=== PATIENT | female | born 1950 | race Caucasian/White ===

== ENCOUNTER 2019-12-07 07:05 | Inpatient (IN) | payer MEDICARE, BC ==
[~2019-12-07 07:05] MED LIST: Acetaminophen 325 MG Tab PO SCH; Bisacodyl 5 MG Tab PO PRN; Lactated Ringers 1,000 ML IV SCH; Lidocaine 1%/Sod Bicarbonate in NS 8.4% 1 ML Syringe IDERM PRN; Magnesium Hydroxide 400 MG/5 ML Susp 30 ML Cup PO PRN; Morphine 2 MG/ML SYRINGE IVPUSH PRN; Naloxone 0.4 MG/ML SDV IVPUSH PRN; Ondansetron 4 MG/2 ML SDV IVPUSH PRN; Pregabalin 25 MG Cap PO SCH; Sennosides 8.6 MG Tab PO PRN; Sodium Chloride 0.9% 10 ML Syringe FLUSH PRN; oxyCODONE ER 10 MG TAB.ER PO SCH
--- NOTE | 2019-12-07 07:12 | PCM.CONS ---
H&P History of Present Illness - General Date of Service: 12/07/19 Admit Problem/Dx: Admission Diagnosis/Problem Admission Diagnosis/Problem Osteoarthritis of hip Source of Information: Patient, Old Records, Provider, RN, RN Notes Reviewed History Limitations: Reports: No Limitations - History of Present Illness Initial Comments - Free Text/Narative: Nakia Osborn is a 69 yo female patient of Dr. Spear who is post-operative day 0 of left SIMÓN. Hospital medicine was consulted for post-operative medical care of the following listed medical conditions. At this time she is resting comfortably in bed. Pain is controlled. She denies any chest pain, shortness of breath, palpitations, nausea, or vomiting. She carries a history of: CABG in 2018, Stents placed in 2012, CAD HLD, HTN, [place], Asthma, GERD, Arthritis, Chronic back pain, Fibromyalgia, Osteoarthritis, Sciatica, RLS, Chronic headaches, Anxiety, Depression, Insomnia. She is a former smoker. She is a full code. Her primary care provider is Dr. Blue. Left Hip Pain Score (Numeric/FACES): 8 - Related Data Allergies/Adverse Reactions: Allergies Allergy/AdvReac Type Severity Reaction Status Date / Time cephalexin [From Keflex] Allergy Other Verified 12/07/19 08:24 ciprofloxacin [From Cipro] Allergy Rash Verified 12/07/19 08:24 latex Allergy Itching Verified 12/07/19 08:24 tapentadol [From Nucynta] AdvReac Hallucinati Verified 12/07/19 08:24 ons Home Medications: Home Meds Aspirin [[place] Aspirin] 81 mg PO DAILY 12/06/19 [History] Celecoxib 200 mg PO DAILY 12/06/19 [History] Cyclobenzaprine [Flexeril] 10 mg PO BEDTIME PRN 12/06/19 [History] DULoxetine [Cymbalta] 60 mg PO BEDTIME 12/06/19 [History] Diclofenac Sodium [Voltaren 1% Gel] 1 dose TOP TID PRN 12/06/19 [History] Fluticasone Propionate [Flonase] 1 dose NASBOTH DAILY PRN 12/06/19 [History] Gabapentin [Neurontin] 100 mg PO TID 12/06/19 [History] LORazepam [Ativan] 0.5 - 1 mg PO BEDTIME 12/06/19 [History] Multivitamin [Daily Multiple Vitamin] 1 tab PO DAILY 12/06/19 [History] Nitroglycerin [Nitrostat] 0.4 mg PO ASDIRECTED PRN 12/06/19 [History] Omeprazole Magnesium [Prilosec Otc] 40 mg PO DAILY 12/06/19 [History] Rosuvastatin [Crestor] 10 mg PO MOWEFR 12/06/19 [History] Ubidecarenone [Coq-10] 200 mg PO DAILY 12/06/19 [History] Zolpidem [Ambien] 5 mg PO BEDTIME 12/06/19 [History] busPIRone [Buspar] 10 mg PO DAILY 12/06/19 [History] valACYclovir HCl [Valtrex] 1,000 mg PO ASDIRECTED PRN 12/06/19 [History] Past Medical History HEENT History: Reports: Allergic Rhinitis, Impaired Vision Cardiovascular History: Reports: High Cholesterol, Hypertension, [place], Stents Respiratory History: Reports: Asthma, SOB, Other (See Below) Other Respiratory History: bronchospasm, wheezing, cough, pneumonia Gastrointestinal History: Reports: GERD, Other (See Below) Other Gastrointestinal History: loose stools Genitourinary History: Reports: None 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 Musculoskeletal History: Reports: Arthritis, Back Pain, Chronic, Fibromyalgia, Osteoarthritis, Other (See Below) Other Musculoskeletal History: left ankle swelling, sciatica, restless leg syndrome, left foot metatarsalgia Neurological History: Reports: Headaches, Chronic, Other (See Below) Other Neuro History: viral labyrinthitis Psychiatric History: Reports: Anxiety, Depression, Other (See Below) Other Psychiatric History: insomnia Endocrine/Metabolic History: Reports: None Hematologic History: Reports: None Immunologic History: Reports: None Oncologic (Cancer) History: Reports: None Dermatologic History: Reports: Other (See Below) Other Dermatologic History: cold sores, fat necrosis of skin - Past Surgical History Head Surgeries/Procedures: Reports: None HEENT Surgical History: Reports: Tonsillectomy Cardiovascular Surgical History: Reports: Coronary Artery Bypass Respiratory Surgical History: Reports: None GI Surgical History: Reports: Appendectomy, Colonoscopy Female Surgical History: Reports: Breast Biopsy, Tubal Ligation Endocrine Surgical History: Reports: None Neurological Surgical History: Reports: None Musculoskeletal Surgical History: Reports: Other (See Below) Other Musculoskeletal Surgeries/Procedures:: bilateral wrist surgeries, bilateral bunionectomies Oncologic Surgical History: Reports: None Social & Family History - Tobacco Use Smoking Status *Q: Former Smoker Used Tobacco, but Quit: Yes Month/Year Tobacco Last Used: 1996 - Caffeine Use Caffeine Use: Reports: Soda - Recreational Drug Use Recreational Drug Use: No H&P Review of Systems - Review of Systems: Review Of Systems: See Below General: Reports: No Symptoms. Denies: Fever, Chills HEENT: Reports: No Symptoms. Denies: Headaches, Sore Throat Pulmonary: Reports: No Symptoms. Denies: Shortness of Breath, Wheezing, Pleuritic Chest Pain, Cough, Sputum Cardiovascular: Reports: No Symptoms. Denies: Chest Pain, Palpitations, Dyspnea on Exertion Gastrointestinal: Reports: No Symptoms. Denies: Abdominal Pain, Constipation, Diarrhea, Nausea, Vomiting Genitourinary: Reports: No Symptoms. Denies: Pain Musculoskeletal: Reports: Leg Pain Skin: Reports: No Symptoms. Denies: Cyanosis Psychiatric: Reports: No Symptoms. Denies: Confusion Neurological: Reports: Difficulty Walking, Gait Disturbance Hematologic/Lymphatic: Reports: No Symptoms Immunologic: Reports: No Symptoms Exam - Exam Exam: See Below - Exam Quality Assessment: DVT Prophylaxis. No: Supplemental Oxygen, Urinary Catheter General: Alert, Oriented, Cooperative. No: Mild Distress HEENT: Conjunctiva Clear, EACs Clear, Hearing Intact, Mucosa Moist & [place], Nares Patent, Posterior Pharynx Clear, PERRLA Neck: Supple, Trachea Midline Lungs: Clear to Auscultation, Normal Respiratory Effort Cardiovascular: Regular Rate, Regular Rhythm GI/Abdominal Exam: Normal Bowel Sounds, Soft, Non-Tender, No Distention (Female) Exam: Deferred Rectal (Female) Exam: Deferred Extremities: Normal Capillary Refill, Leg Pain, Limited Range of Motion, Other ( Bandage in place on left leg. Bandage is dry and intact. Cooling pack in place. ) Peripheral Pulses: 2+: Radial (L), Radial (R), Dorsalis Pedis (L), Dorsalis Pedis (R) Skin: Warm, Dry, Intact Neurological: Cranial Nerves Intact (Grossly ) Neuro Extensive - Mental Status: Alert, Oriented x3, Normal Mood/Affect Consult PN Assessment/Plan POD#: 0 (1) S/P total hip arthroplasty SNOMED Code(s): 527127633815, 400210084675 Code(s): Z96.649 - PRESENCE OF UNSPECIFIED ARTIFICIAL HIP JOINT Priority: High Current Visit: Yes Qualifiers: Laterality: left Qualified Code(s): Z96.642 - Presence of left artificial hip joint (2) Osteoarthritis SNOMED Code(s): 883637706 Code(s): M19.90 - UNSPECIFIED OSTEOARTHRITIS, UNSPECIFIED SITE Priority: High Current Visit: Yes Qualifiers: Osteoarthritis location: hip Osteoarthritis type: primary Laterality: left Qualified Code(s): M16.12 - Unilateral primary osteoarthritis, left hip (3) HLD (hyperlipidemia) SNOMED Code(s): 47063647 Code(s): E78.5 - HYPERLIPIDEMIA, UNSPECIFIED Priority: Low Current Visit : No Qualifiers: Hyperlipidemia type: unspecified Qualified Code(s): E78.5 - Hyperlipidemia , unspecified (4) HTN (hypertension) SNOMED Code(s): 92903754 Code(s): I10 - ESSENTIAL (PRIMARY) HYPERTENSION Priority: Medium Current Visit: No Qualifiers: Hypertension type: unspecified Qualified Code(s): I10 - Essential (primary ) hypertension (5) History of [place] (myocardial infarction) SNOMED Code(s): 500100532 Code(s): I25.2 - OLD MYOCARDIAL INFARCTION Priority: Medium Current Visit : No (6) Hx of CABG SNOMED Code(s): 789501405, 251763917 Code(s): Z95.1 - PRESENCE OF AORTOCORONARY BYPASS GRAFT Priority: Medium Current Visit: No Comment: 4 vessel in 2018 (7) Asthma SNOMED Code(s): 741056479 Code(s): J45.909 - UNSPECIFIED ASTHMA, UNCOMPLICATED Priority: Medium Current Visit: No Qualifiers: Asthma severity: unspecified severity Asthma persistence: unspecified Asthma complication type: unspecified Qualified Code(s): J45.909 - Unspecified asthma, uncomplicated (8) GERD (gastroesophageal reflux disease) SNOMED Code(s): 654696995 Code(s): K21.9 - GASTRO-ESOPHAGEAL REFLUX DISEASE WITHOUT ESOPHAGITIS Priority: Low Current Visit: No Qualifiers: Esophagitis presence: esophagitis presence not specified Qualified Code(s) : K21.9 - Gastro-esophageal reflux disease without esophagitis (9) Chronic back pain SNOMED Code(s): 868836968 Code(s): M54.9 - DORSALGIA, UNSPECIFIED; G89.29 - OTHER CHRONIC PAIN Priority: Low Current Visit: No Qualifiers: Back pain location: back pain in unspecified location Back pain laterality : unspecified Qualified Code(s): M54.9 - Dorsalgia, unspecified; G89.29 - Other chronic pain (10) Fibromyalgia SNOMED Code(s): 155360037 Code(s): M79.7 - FIBROMYALGIA Priority: Low Current Visit: No (11) Sciatica SNOMED Code(s): 08188266 Code(s): M54.30 - SCIATICA, UNSPECIFIED SIDE Priority: Low Current Visit : No Qualifiers: Laterality: unspecified laterality Qualified Code(s): M54.30 - Sciatica, unspecified side (12) RLS (restless legs syndrome) SNOMED Code(s): 42633635 Code(s): G25.81 - RESTLESS LEGS SYNDROME Priority: Low Current Visit: No (13) Chronic headache SNOMED Code(s): 401953942 Code(s): R51 - HEADACHE Priority: Low Current Visit: No Qualifiers: Headache type: unspecified Intractability: not intractable Qualified Code (s): R51 - Headache (14) Anxiety SNOMED Code(s): 24862525 Code(s): F41.9 - ANXIETY DISORDER, UNSPECIFIED Priority: Low Current Visit: No (15) Depression SNOMED Code(s): 63968505 Code(s): F32.9 - MAJOR DEPRESSIVE DISORDER, SINGLE EPISODE, UNSPECIFIED Priority: Low Current Visit: No Qualifiers: Depression Type: other depression Qualified Code(s): F32.89 - Other specified depressive episodes (16) Insomnia SNOMED Code(s): 705766458 Code(s): G47.00 - INSOMNIA, UNSPECIFIED Priority: Low Current Visit: No Qualifiers: Insomnia type: unspecified Qualified Code(s): G47.00 - Insomnia, unspecified (17) Former smoker SNOMED Code(s): 6115720 Code(s): Z87.891 - PERSONAL HISTORY OF NICOTINE DEPENDENCE Priority: Low Current Visit: No (18) CAD (coronary artery disease) SNOMED Code(s): 70745292 Code(s): I25.10 - ATHSCL HEART DISEASE OF [place] CORONARY ARTERY W/O ANG PCTRS Priority: Medium Current Visit: No Qualifiers: Coronary Disease-Associated Artery/Lesion type: unspecified vessel or lesion type [place] vs. transplanted heart: [place] heart Associated angina: angina presence unspecified Qualified Code(s): I25.10 - Atherosclerotic heart disease of [place] coronary artery without angina pectoris (19) Hx of heart artery stent SNOMED Code(s): 690666339, 305255323 Code(s): Z95.5 - PRESENCE OF CORONARY ANGIOPLASTY IMPLANT AND GRAFT Priority: Medium Current Visit: No Comment: 2012 Problem List Initiated/Reviewed/Updated: Yes Plan: I/P: Acute: S/P left total hip arthroplasty - post-operative day 0 -DVT prophylaxis and pain management per primary care team -PT/OT -IS/RT -Monitor oxygen saturation -Titrate oxygen as needed -Home medications reviewed -Vital signs stable -Monitor labs -Pre-operative Hgb was 13.0 -Pre-operative GFR was 60 -Pre-operative echo showed LVEF of 60-65% Osteoarthritis of left hip -Pain management per primary care team Chronic: CABG in 2018 Stents placed in 2012 [place] HLD HTN [place] Asthma GERD Arthritis Chronic back pain Fibromyalgia Osteoarthritis Sciatica RLS Chronic headaches Anxiety Depression Insomnia Plan: CM for discharge planning GI prophylaxis Home medications as indicated Other orders as listed above Routine AM labs She is a full code. Her PCP is Dr. Blue Thank you for allowing us to participate in the care of this patient!! Requesting Provider: Dr. Spear Date Consult Requested: 12/07/19 Patient History Reviewed: Yes Admission H&P Reviewed: Yes Notified Requestor: Yes
[2019-12-07] MEDS ORDERED: Ondansetron 4 MG/2 ML SDV ONE (07:18)
[2019-12-07] MEDS ORDERED: Lactated Ringers 1,000 ML ONE (07:18)
[2019-12-07] MEDS ORDERED: Lidocaine 1% 4 ML ONE (07:18)
[2019-12-07] MEDS ORDERED: fentaNYL 100 MCG/2 ML SDV ONE ×2 (07:19→07:20)
[2019-12-07] MEDS ORDERED: Midazolam 1 MG/ML 2 ML SDV ONE (07:19)
[2019-12-07] MEDS ORDERED: Propofol 200 MG/20 ML SDV ONE (07:19)
[2019-12-07] MEDS ORDERED: Dexamethasone 4 MG/ML 5 ML MDV ONE (07:19)
[2019-12-07] MEDS ORDERED: ceFAZolin 1 GM Vial ONE (07:38)
[2019-12-07] MEDS ORDERED: Pregabalin 25 MG Cap PO SCH (08:00)
[2019-12-07] MEDS ORDERED: oxyCODONE ER 10 MG TAB.ER PO SCH (08:00)
[2019-12-07] MEDS ORDERED: Acetaminophen 325 MG Tab PO SCH (08:00)
--- NOTE | 2019-12-07 08:28 | PCM.PREANE ---
Preanesthetic Assessment - Procedure Proposed Procedure: Left Total Hip Arthroplasty - Anesthesia/Transfusion/Family Hx Anesthesia History: Prior Anesthesia Without Reaction Family History of Anesthesia Reaction: No Transfusion History: No Prior Transfusion(s) - Review of Systems General: No Symptoms Pulmonary: No Symptoms, Other (Asthma symptoms when around cigarette smoke and perfumes. ) Cardiovascular: No Symptoms (CABG in 2018, follows with cardiology, has been doing well since. ) Gastrointestinal: Other (Occasional heart burn if eating before bed. ) Neurological: Pre-Existing Deficit (Chronic low back pain, gets epidural steroid injections when needed. Pain goes to hip and knees. Her back is hurting while she is resting in bed this morning, pain is tolerable. ), Other ( Fibromyalgia) Other: Reports: None (Caring for her with cancer. ) - Physical Assessment NPO Status Date: 12/06/19 NPO Status Time: 22:00 Vital Signs: Last Vital Signs Temp 36.4 C 12/07/19 07:27 Pulse 89 12/07/19 07:27 Resp 16 12/07/19 07:27 BP 146/78 H 12/07/19 08:15 Pulse Ox 98 12/07/19 07:27 Height: 1.57 m Weight: 78.471 kg ASA Class: 3 Mental Status: Alert & Oriented x3 Airway Class: Mallampati = 2 Dentition: Reports: Normal Dentition Thyro-Mental Finger Breadths: 3 Mouth Opening Finger Breadths: 3 ROM/Head Extension: Full Lungs: Clear to Auscultation, Normal Respiratory Effort Cardiovascular: Regular Rate, Regular Rhythm - Lab Values: Laboratory Last Values MRSA (PCR) Negative 11/30/19 14:40 - Allergies Allergies/Adverse Reactions: Allergies Allergy/AdvReac Type Severity Reaction Status Date / Time cephalexin [From Keflex] Allergy Difficulty Verified 12/06/19 13:10 Breathing ciprofloxacin [From Cipro] Allergy Rash Verified 12/06/19 13:10 latex Allergy Itching Verified 12/06/19 13:10 tapentadol [From Nucynta] AdvReac Hallucinati Verified 12/06/19 13:27 ons - Anesthesia Plan Pre-Op Medication Ordered: Anxiolytic, Other (Total joint preop medications) - Acknowledgements Anesthesia Type Planned: Spinal Pt an Appropriate Candidate for the Planned Anesthesia: Yes Alternatives and Risks of Anesthesia Discussed w Pt/Guardian: Yes Pt/Guardian Understands and Agrees with Anesthesia Plan: Yes Additional Comments: Discussed spinal block with patient. 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 She does understand it may aggravate her back pain. She tolerated her epidural steroid injections well. She has no further questions or concerns at this time. 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 Musculoskeletal History: Reports: Arthritis, Back Pain, Chronic, Fibromyalgia, Osteoarthritis, Other (See Below) Other Musculoskeletal History: left ankle swelling, sciatica, restless leg syndrome, left foot metatarsalgia Neurological History: Reports: Headaches, Chronic, Other (See Below) Other Neuro History: viral labyrinthitis Psychiatric History: Reports: Anxiety, Depression, Other (See Below) Other Psychiatric History: insomnia Endocrine/Metabolic History: Reports: None Hematologic History: Reports: None Immunologic History: Reports: None Oncologic (Cancer) History: Reports: None Dermatologic History: Reports: Other (See Below) Other Dermatologic History: cold sores, fat necrosis of skin - Past Surgical History Head Surgeries/Procedures: Reports: None HEENT Surgical History: Reports: Tonsillectomy Cardiovascular Surgical History: Reports: Coronary Artery Bypass Respiratory Surgical History: Reports: None GI Surgical History: Reports: Appendectomy, Colonoscopy Female Surgical History: Reports: Breast Biopsy, Tubal Ligation Endocrine Surgical History: Reports: None Neurological Surgical History: Reports: None Musculoskeletal Surgical History: Reports: Other (See Below) Other Musculoskeletal Surgeries/Procedures:: bilateral wrist surgeries, bilateral bunionectomies Oncologic Surgical History: Reports: None - SUBSTANCE USE Smoking Status *Q: Former Smoker Recreational Drug Use History: No - HOME MEDS Home Medications: Home Meds Aspirin [[place] Aspirin] 81 mg PO DAILY 12/06/19 [History] Celecoxib 200 mg PO DAILY 12/06/19 [History] Citalopram Hydrobromide [Celexa] 40 mg PO DAILY 12/06/19 [History] Cyclobenzaprine [Flexeril] 10 mg PO BEDTIME PRN 12/06/19 [History] DULoxetine [Cymbalta] 60 mg PO BEDTIME 12/06/19 [History] Diclofenac Sodium [Voltaren 1% Gel] 1 dose TOP TID PRN 12/06/19 [History] Fenofibrate Nanocrystallized [Fenofibrate] 48 mg PO DAILY 12/06/19 [History] Fluticasone Propionate [Flonase] 1 dose NASBOTH DAILY PRN 12/06/19 [History] Gabapentin [Neurontin] 100 mg PO TID 12/06/19 [History] LORazepam [Ativan] 0.5 - 1 mg PO BEDTIME 12/06/19 [History] Multivitamin [Daily Multiple Vitamin] 1 tab PO DAILY 12/06/19 [History] Nitroglycerin [Nitrostat] 0.4 mg PO ASDIRECTED PRN 12/06/19 [History] Omeprazole Magnesium [Prilosec Otc] 40 mg PO QPM 12/06/19 [History] Rosuvastatin [Crestor] 10 mg PO MOWEFR 12/06/19 [History] Ubidecarenone [Coq-10] 200 mg PO DAILY 12/06/19 [History] Zolpidem [Ambien] 5 mg PO BEDTIME 12/06/19 [History] busPIRone [Buspar] 10 mg PO DAILY 12/06/19 [History] valACYclovir HCl [Valtrex] 1,000 mg PO ASDIRECTED PRN 12/06/19 [History] - CURRENT (IN HOUSE) MEDS Current Meds: Current Medications Acetaminophen (Tylenol) 975 mg PO ONETIME SALAZAR Stop: 12/07/19 12:00 Aspirin (Ecotrin) 325 mg PO BID SALAZAR Bisacodyl (Dulcolax) 5 mg PO DAILY PRN PRN Reason: Constipation Morphine Sulfate 8 mg/Epinephrine HCl 0.3 mg/Cefuroxime Sodium 750 mg/Ketorolac Tromethamine 30 mg/Sodium Chloride 7.9 ml 0 mg .XX ASDIRECTED PRN PRN Reason: Pain Docusate Sodium (Colace) 100 mg PO BID SALAZAR Famotidine (Pepcid) 20 mg PO Q12H SALAZAR Lactated Ringer's (Ringers, Lactated) 1,000 mls @ 125 mls/hr IV ASDIRECTED SALAZAR Stop: 12/07/19 23:00 Cefazolin Sodium/Dextrose 2 gm (/ Premix) 50 mls @ 100 mls/hr IV Q8H SALAZAR Stop: 12/08/19 09:59 Ketorolac Tromethamine (Toradol) 15 mg IVPUSH Q6H PRN PRN Reason: Pain Lidocaine/Sodium Bicarbonate (Buffered Lidocaine 1% In Ns 8.4%) 0.25 ml IDERM ONETIME PRN PRN Reason: Prior to IV Start Stop: 12/07/19 18:00 Magnesium Hydroxide (Milk Of Magnesia) 30 ml PO BID PRN PRN Reason: Constipation Morphine Sulfate (Morphine) 2 mg IVPUSH Q2H PRN PRN Reason: Breakthrough Pain Naloxone HCl (Narcan) 0.1 mg IVPUSH Q5M PRN PRN Reason: Oversedation Ondansetron HCl (Zofran) 4 mg IVPUSH Q6H PRN PRN Reason: Nausea/Vomiting Oxycodone HCl (Oxycontin) 10 mg PO ONETIME SALAZAR Stop: 12/07/19 12:00 Oxycodone/Acetaminophen (Percocet 325-5 Mg) 1 - 2 tab PO Q4H PRN PRN Reason: Pain Pregabalin (Lyrica) 50 mg PO ONETIME SALAZAR Stop: 12/07/19 12:00 Senna (Senna) 8.6 mg PO BID PRN PRN Reason: Constipation Sodium Chloride (Saline Flush) 10 ml FLUSH ASDIRECTED PRN PRN Reason: Keep Vein Open Stop: 12/07/19 18:00 Discontinued Medications Acetaminophen (Tylenol) 975 mg PO ONETIME SALAZAR Stop: 12/07/19 16:00 Last Admin: 12/07/19 07:58 Dose: 975 mg Bupivacaine HCl (Sensorcaine-Mpf 0.25%) Confirm Administered Dose 30 ml .ROUTE .STK-MED ONE Stop: 12/07/19 07:39 Cefazolin Sodium (Ancef) Confirm Administered Dose 2 gm .ROUTE .STK-MED ONE Stop: 12/07/19 07:19 Cefazolin Sodium (Ancef) Confirm Administered Dose 2 gm .ROUTE .STK-MED ONE Stop: 12/07/19 07:39 Dexamethasone (Dexamethasone) Confirm Administered Dose 20 mg .ROUTE .STK-MED ONE Stop: 12/07/19 07:20 Fentanyl (Sublimaze) Confirm Administered Dose 100 mcg .ROUTE .STK-MED ONE Stop: 12/07/19 07:20 Fentanyl (Sublimaze) Confirm Administered Dose 100 mcg .ROUTE .STK-MED ONE Stop: 12/07/19 07:21 Lidocaine HCl (Xylocaine-Mpf 1%) Confirm Administered Dose 4 mls @ as directed .ROUTE .STK-MED ONE Stop: 12/07/19 07:19 Lactated Ringer's (Ringers, Lactated) Confirm Administered Dose 1,000 mls @ as directed .ROUTE .STK-MED ONE Stop: 12/07/19 07:19 Iodine (Iodine 2% Mild Tincture) Confirm Administered Dose 30 ml .ROUTE .STK- MED ONE Stop: 12/07/19 07:39 Midazolam HCl (Versed 1 Mg/Ml) Confirm Administered Dose 2 mg .ROUTE .STK-MED ONE Stop: 12/07/19 07:20 Ondansetron HCl (Zofran) Confirm Administered Dose 4 mg .ROUTE .ST-MED ONE Stop: 12/07/19 07:19 Oxycodone HCl (Oxycontin) 10 mg PO ONETIME [facility] Stop: 12/07/19 16:00 Last Admin: 12/07/19 07:58 Dose: 10 mg Pregabalin (Lyrica) 50 mg PO ONETIME [facility] Stop: 12/07/19 16:00 Last Admin: 12/07/19 07:58 Dose: 50 mg Propofol (Diprivan 20 Ml) Confirm Administered Dose 1,000 mg .ROUTE .STK-MED ONE Stop: 12/07/19 07:20 Tranexamic Acid (Cyklokapron) Confirm Administered Dose 1,000 mg .ROUTE .STK- MED ONE Stop: 12/07/19 07:39 Vancomycin HCl (Vancomycin) Confirm Administered Dose 1 gm .ROUTE .STK-MED ONE Stop: 12/07/19 07:39
[2019-12-07] MEDS ORDERED: Ketamine 500 mg/10 ML MDV ONE (09:15)
[2019-12-07] MEDS: Bupivacaine 0.25% 10 ML SDV ONE ×2 (09:29→09:55)
[2019-12-07] MEDS: ceFAZolin 1 GM Vial ONE ×2 (09:30→09:51)
[2019-12-07] MEDS: Morphine 8 MG, EPINEPHrine 0.3 MG, Cefuroxime 750 MG, Ketorolac 30 MG, Sodium Chloride ... PRN ×10 (09:31→09:56)
[2019-12-07] MEDS: Iodine/Sodium Iodide 2% Tincture 30 ML Bottle ONE ×2 (09:31→09:49)
[2019-12-07] MEDS: Vancomycin 1 GM SDV ONE ×2 (09:32→09:57)
[2019-12-07] MEDS ORDERED: HYDROmorphone 0.5 MG/0.5 ML Syringe IVPUSH PRN (10:08)
[2019-12-07] MEDS ORDERED: Ondansetron 4 MG/2 ML SDV IVPUSH PRN (10:08)
[2019-12-07] MEDS ORDERED: fentaNYL 100 MCG/2 ML SDV IVPUSH PRN (10:08)
[2019-12-07] MEDS ORDERED: Nitroglycerin 0.4 MG Tab.SL SL PRN (10:20)
[2019-12-07] MEDS ORDERED: DICLOFENAC SODIUM TOP PRN (10:20)
[2019-12-07] MEDS ORDERED: FLUTICASONE PROPIONATE NASBOTH PRN (10:20)
[2019-12-07] MEDS ORDERED: valACYclovir 1,000 MG Tab PO PRN (10:20)
--- NOTE | 2019-12-07 10:32 | PCM.POSTAN ---
POST ANESTHESIA ASSESSMENT - MENTAL STATUS Mental Status: Other (Drowsy) - VITAL SIGNS Vital Signs: Last Vital Signs Temp 36.1 C 12/07/19 10:23 Pulse 76 12/07/19 10:23 Resp 12 12/07/19 10:23 BP 96/62 12/07/19 10:23 Pulse Ox 99 12/07/19 10:23 - RESPIRATORY Respiratory Status: Respiratory Rate WNL, Airway Patent, O2 Saturation Stable, Supplemental Oxygen - CARDIOVASCULAR CV Status: Pulse Rate WNL, Blood Pressure Stable - GASTROINTESTINAL GI Status: No Symptoms - PAIN Pain Score: 0 - POST OP HYDRATION Hydration Status: Adequate & Stable
--- NOTE | 2019-12-07 11:15 | CR ---
Pelvis left hip: AP view of the pelvis was obtained as well as crosstable lateral view of the left hip. Comparison: No previous pelvis or hip exam is available. Left hip prosthesis is seen. Components are aligned. Underlying bony structures appear intact. Mild joint space narrowing is noted within the right hip. Diffuse disc space narrowing is noted within the visualized lower lumbar spine. Impression: 1. Recently placed left hip prosthesis. 2. Degenerative change as noted above. Diagnostic code #2 This report was dictated in MDT
[2019-12-07] MEDS ORDERED: Rosuvastatin 10 MG Tab PO SCH (12:00)
[2019-12-07] MEDS: Acetaminophen/oxyCODONE 325-5 MG Tab PO PRN ×3 (14:01→22:25)
[2019-12-07] MEDS: Gabapentin 100 MG Cap PO SCH ×2 (15:57→20:56)
[2019-12-07] MEDS: Famotidine 20 MG Tab PO SCH ×2 (15:58→18:07)
[2019-12-07] MEDS: ceFAZolin 2 GM in Premix Bag 1 BAG IV SCH (17:58)
[2019-12-07] MEDS: Ketorolac 15 MG/ML SDV IVPUSH PRN (20:56)
[2019-12-07] MEDS: Docusate Sodium 100 MG Cap PO SCH (20:56)
[2019-12-07] MEDS ORDERED: DULoxetine 30 MG Cap PO SCH (21:00)
[2019-12-08] MEDS: Acetaminophen/oxyCODONE 325-5 MG Tab PO PRN ×3 (02:32→13:08)
[2019-12-08] MEDS: ceFAZolin 2 GM in Premix Bag 1 BAG IV SCH ×2 (02:33→10:11)
[2019-12-08] MEDS: Famotidine 20 MG Tab PO SCH (06:27)
[2019-12-08] MEDS: Ketorolac 15 MG/ML SDV IVPUSH PRN (06:28)
[2019-12-08] MEDS ORDERED: Pantoprazole 40 MG Tab.CR PO SCH (07:00)
--- NOTE | 2019-12-08 07:29 | PCM48HPAN ---
Post Anesthesia Note - EVALUATION WITHIN 48HRS OF ANESTHETIC Vital Signs in Normal Range: Yes Patient Participated in Evaluation: Yes Respiratory Function Stable: Yes Airway Patent: Yes Cardiovascular Function Stable: Yes Hydration Status Stable: Yes Pain Control Satisfactory: Yes Nausea and Vomiting Control Satisfactory: Yes Mental Status Recovered: Yes Vital Signs: Last Vital Signs Temp 36.8 C 12/08/19 03:08 Pulse 68 12/08/19 03:08 Resp 18 12/08/19 03:08 BP 95/73 12/08/19 03:08 Pulse Ox 100 12/08/19 03:08 - COMMENTS/OBSERVATIONS Free Text/Narrative:: no anesthesia complications noted
[2019-12-08] MEDS: Gabapentin 100 MG Cap PO SCH (08:13)
[2019-12-08] MEDS: Docusate Sodium 100 MG Cap PO SCH (08:13)
[2019-12-08] MEDS ORDERED: Non-Formulary Medication 1 Each (Ubidecarenone 200 MG) PO SCH (09:00)
[2019-12-08] MEDS ORDERED: Aspirin 325 MG Tab.EC PO SCH (09:00)
[2019-12-08] MEDS ORDERED: Multivitamins,Therapeutic Tab PO SCH (09:00)
[2019-12-08] MEDS ORDERED: busPIRone 5 MG Tab PO SCH (09:00)
--- NOTE | 2019-12-08 11:27 | PCM.CONSN ---
- General Info Date of Service: 12/08/19 Admission Dx/Problem (Free Text): Admission Diagnosis/Problem Admission Diagnosis/Problem Osteoarthritis of hip Functional Status: Reports: Pain Controlled, Tolerating Diet, Ambulating, Urinating, Incentive Spirometry. Denies: New Symptoms - Review of Systems General: Reports: No Symptoms. Denies: Fever, Chills HEENT: Reports: No Symptoms. Denies: Headaches, Sore Throat Pulmonary: Reports: No Symptoms. Denies: Shortness of Breath, Cough, Sputum, Wheezing Cardiovascular: Reports: No Symptoms. Denies: Chest Pain, Palpitations, Dyspnea on Exertion Gastrointestinal: Reports: No Symptoms. Denies: Abdominal Pain, Constipation, Diarrhea, Nausea, Vomiting Genitourinary: Reports: No Symptoms. Denies: Pain Musculoskeletal: Reports: Leg Pain Skin: Reports: No Symptoms. Denies: Cyanosis Neurological: Reports: Difficulty Walking, Gait Disturbance Psychiatric: Reports: No Symptoms - Patient Data Vitals - Most Recent: Last Vital Signs Temp 97.5 F 12/08/19 11:10 Pulse 66 12/08/19 11:10 Resp 12 12/08/19 11:10 BP 117/89 12/08/19 11:10 Pulse Ox 98 12/08/19 11:10 Weight - Most Recent: 180 lb I&O - Last 24 Hours: Intake & Output 12/07/19 12/08/19 12/08/19 22:59 06:59 14:59 Intake Total 1240 850 50 Output Total 300 1400 Balance 940 -550 50 Lab Results Last 24 Hours: Laboratory Results - last 24 hr 12/08/19 12/08/19 Range/Units 05:15 05:15 WBC 12.94 H (3.98-10.04) K/mm3 RBC 3.30 L (3.98-5.22) M/mm3 Hgb 10.3 L (11.2-15.7) gm/dl Hct 32.2 L (34.1-44.9) % MCV 97.6 H (79.4-94.8) fl MCH 31.2 (25.6-32.2) pg MCHC 32.0 L (32.2-35.5) g/dl RDW Std Deviation 42.4 (36.4-46.3) fL Plt Count 282 (182-369) K/mm3 MPV 10.5 (9.4-12.3) fl Sodium 140 (136-145) mEq/L Potassium 4.7 (3.5-5.1) mEq/L Chloride 104 (98-107) mEq/L Carbon Dioxide 28 (21-32) mEq/L Anion Gap 12.7 (5-15) BUN 16 (7-18) mg/dL Creatinine 1.1 H (0.55-1.02) mg/dL Est Cr Clr Drug Dosing 39.25 mL/min Estimated GFR (MDRD) 50 (>60) mL/min BUN/Creatinine Ratio 14.5 (14-18) Glucose 143 H (80-115) mg/dL Calcium 8.7 (8.5-10.1) mg/dL Total Bilirubin 0.3 (0.2-1.0) mg/dL AST 33 (15-37) U/L ALT 28 (14-59) U/L Alkaline Phosphatase 61 (46-116) U/L Total Protein 5.8 L (6.4-8.2) g/dl Albumin 3.2 L (3.4-5.0) g/dl Globulin 2.6 gm/dL Albumin/Globulin Ratio 1.2 (1-2) Med Orders - Current: Current Medications Aspirin (Ecotrin) 325 mg PO BID [facility] Last Admin: 12/08/19 08:12 Dose: 325 mg Bisacodyl (Dulcolax) 5 mg PO DAILY PRN PRN Reason: Constipation Buspirone HCl (Buspar) 10 mg PO DAILY [facility] Last Admin: 12/08/19 08:13 Dose: 10 mg Docusate Sodium (Colace) 100 mg PO BID [facility] Last Admin: 12/08/19 08:13 Dose: 100 mg Duloxetine HCl (Cymbalta) 60 mg PO BEDTIME [facility] Last Admin: 12/07/19 20:56 Dose: 60 mg Gabapentin (Neurontin) 100 mg PO TID [facility] Last Admin: 12/08/19 08:13 Dose: 100 mg Magnesium Hydroxide (Milk Of Magnesia) 30 ml PO BID PRN PRN Reason: Constipation Morphine Sulfate (Morphine) 2 mg IVPUSH Q2H PRN PRN Reason: Breakthrough Pain Multivitamins (Thera) 1 each PO DAILY [facility] Last Admin: 12/08/19 08:12 Dose: 1 each Naloxone HCl (Narcan) 0.1 mg IVPUSH Q5M PRN PRN Reason: Oversedation Nitroglycerin (Nitrostat) 0.4 mg SL ASDIRECTED PRN PRN Reason: Chest Pain Non-Formulary Medication (Fluticasone Propionate [Flonase]) 1 dose NASBOTH DAILY PRN PRN Reason: allergic rhinitis Ondansetron HCl (Zofran) 4 mg IVPUSH Q6H PRN PRN Reason: Nausea/Vomiting Oxycodone/Acetaminophen (Percocet 325-5 Mg) 1 - 2 tab PO Q4H PRN PRN Reason: Pain Last Admin: 12/08/19 06:27 Dose: 2 tab Pantoprazole Sodium (Protonix) 40 mg PO DAILY@0700 [facility] Last Admin: 12/08/19 06:27 Dose: 40 mg Rosuvastatin Calcium (Crestor) 10 mg PO MoWeFr@0900 [facility] Last Admin: 12/07/19 12:48 Dose: 10 mg Senna (Senna) 8.6 mg PO BID PRN PRN Reason: Constipation Valacyclovir HCl (Valtrex) 1,000 mg PO ASDIRECTED PRN PRN Reason: cold sores Discontinued Medications Acetaminophen (Tylenol) 975 mg PO ONETIME [facility] Stop: 12/07/19 16:00 Last Admin: 12/07/19 07:58 Dose: 975 mg Acetaminophen (Tylenol) 975 mg PO ONETIME [facility] Stop: 12/07/19 12:00 Bupivacaine HCl (Sensorcaine-Mpf 0.25%) Confirm Administered Dose 30 ml .ROUTE .STK-MED ONE Stop: 12/07/19 07:39 Last Admin: 12/07/19 09:55 Dose: 30 ml Cefazolin Sodium (Ancef) Confirm Administered Dose 2 gm .ROUTE .STK-MED ONE Stop: 12/07/19 07:19 Last Admin: 12/07/19 09:51 Dose: 2 gm Cefazolin Sodium (Ancef) Confirm Administered Dose 2 gm .ROUTE .STK-MED ONE Stop: 12/07/19 07:39 Morphine Sulfate 8 mg/Epinephrine HCl 0.3 mg/Cefuroxime Sodium 750 mg/Ketorolac Tromethamine 30 mg/Sodium Chloride 7.9 ml 0 mg .XX ASDIRECTED PRN PRN Reason: Pain Last Admin: 12/07/19 09:56 Dose: 788.3 mg Dexamethasone (Dexamethasone) Confirm Administered Dose 20 mg .ROUTE .STK-MED ONE Stop: 12/07/19 07:20 Famotidine (Pepcid) 20 mg PO Q12H [facility] Last Admin: 12/08/19 06:27 Dose: Not Given Fentanyl (Sublimaze) Confirm Administered Dose 100 mcg .ROUTE .STK-MED ONE Stop: 12/07/19 07:20 Fentanyl (Sublimaze) Confirm Administered Dose 100 mcg .ROUTE .STK-MED ONE Stop: 12/07/19 07:21 Fentanyl (Sublimaze) 50 mcg IVPUSH Q5M PRN PRN Reason: Pain Stop: 12/07/19 23:00 Hydromorphone HCl (Dilaudid) 0.5 mg IVPUSH Q10M PRN PRN Reason: Pain (severe 7-10) Lactated Ringer's (Ringers, Lactated) 1,000 mls @ 125 mls/hr IV ASDIRECTED [facility] Stop: 12/07/19 23:00 Last Admin: 12/07/19 07:45 Dose: 125 mls/hr Cefazolin Sodium/Dextrose 2 gm (/ Premix) 50 mls @ 100 mls/hr IV Q8H [facility] Stop: 12/08/19 09:59 Last Admin: 12/08/19 10:11 Dose: Not Given Lidocaine HCl (Xylocaine-Mpf 1%) Confirm Administered Dose 4 mls @ as directed .ROUTE .STK-MED ONE Stop: 12/07/19 07:19 Lactated Ringer's (Ringers, Lactated) Confirm Administered Dose 1,000 mls @ as directed .ROUTE .STK-MED ONE Stop: 12/07/19 07:19 Iodine (Iodine 2% Mild Tincture) Confirm Administered Dose 30 ml .ROUTE .STK- MED ONE Stop: 12/07/19 07:39 Last Admin: 12/07/19 09:49 Dose: 30 ml Ketamine HCl (Ketalar) Confirm Administered Dose 500 mg .ROUTE .STK-MED ONE Stop: 12/07/19 09:16 Ketorolac Tromethamine (Toradol) 15 mg IVPUSH Q6H PRN PRN Reason: Pain Last Admin: 12/08/19 06:28 Dose: 15 mg Lidocaine/Sodium Bicarbonate (Buffered Lidocaine 1% In Ns 8.4%) 0.25 ml IDERM ONETIME PRN PRN Reason: Prior to IV Start Stop: 12/07/19 18:00 Last Admin: 12/07/19 07:45 Dose: 0.25 ml Midazolam HCl (Versed 1 Mg/Ml) Confirm Administered Dose 2 mg .ROUTE .STK-MED ONE Stop: 12/07/19 07:20 Miscellaneous Medication (Phenylephrine 1 Mg/10 Ml-Ns) Confirm Administered Dose 1 mg IV .STK-MED ONE Stop: 12/07/19 12:27 Non-Formulary Medication (Diclofenac Sodium [Voltaren 1% Gel]) 1 dose TOP TID PRN PRN Reason: Pain Non-Formulary Medication (Ubidecarenone) 200 mg PO DAILY [facility] Ondansetron HCl (Zofran) Confirm Administered Dose 4 mg .ROUTE .STK-MED ONE Stop: 12/07/19 07:19 Ondansetron HCl (Zofran) 4 mg IVPUSH ONETIME PRN PRN Reason: Nausea/Vomiting Stop: 12/07/19 13:00 Oxycodone HCl (Oxycontin) 10 mg PO ONETIME [facility] Stop: 12/07/19 16:00 Last Admin: 12/07/19 07:58 Dose: 10 mg Oxycodone HCl (Oxycontin) 10 mg PO ONETIME [facility] Stop: 12/07/19 12:00 Pregabalin (Lyrica) 50 mg PO ONETIME [facility] Stop: 12/07/19 16:00 Last Admin: 12/07/19 07:58 Dose: 50 mg Pregabalin (Lyrica) 50 mg PO ONETIME [facility] Stop: 12/07/19 12:00 Propofol (Diprivan 20 Ml) Confirm Administered Dose 1,000 mg .ROUTE .STK-MED ONE Stop: 12/07/19 07:20 Sodium Chloride (Saline Flush) 10 ml FLUSH ASDIRECTED PRN PRN Reason: Keep Vein Open Stop: 12/07/19 18:00 Tranexamic Acid (Cyklokapron) Confirm Administered Dose 1,000 mg .ROUTE .STK- MED ONE Stop: 12/07/19 07:39 Last Admin: 12/07/19 09:57 Dose: 1,000 mg Vancomycin HCl (Vancomycin) Confirm Administered Dose 1 gm .ROUTE .STK-MED ONE Stop: 12/07/19 07:39 Last Admin: 12/07/19 09:57 Dose: 1 gm - Exam Quality Assessment: DVT Prophylaxis. No: Supplemental Oxygen, Urine Catheter General: Alert, Oriented, Cooperative, No Acute Distress HEENT: Pupils Equal, Pupils Reactive, Mucous Membr. Moist/[place] Neck: Supple, Trachea Midline Lungs: Clear to Auscultation, Normal Respiratory Effort Cardiovascular: Regular Rate, Regular Rhythm GI/Abdominal Exam: Normal Bowel Sounds, Soft, Non-Tender, No Distention (Female) Exam: Deferred Back Exam: Normal Inspection, Full Range of Motion Extremities: Normal Capillary Refill, Leg Pain, Limited Range of Motion, Other ( Bandage in place on left leg. Bandage is dry and intact. ) Peripheral Pulses: 2+: Radial (L), Radial (R), Dorsalis Pedis (L), Dorsalis Pedis (R) Skin: Warm, Dry, Intact Wound/Incisions: Dressing Dry and Intact Neurological: No New Focal Deficit Psy/Mental Status: Alert, Normal Affect, Normal Mood Sepsis Event Note - Evaluation Sepsis Screening Result: No Definite Risk - Focused Exam Vital Signs: Vital Signs Temp Pulse Resp BP Pulse Ox 12/08/19 11:10 97.5 F 66 12 117/89 98 12/08/19 08:10 97.9 F 71 12 121/94 H 96 12/08/19 03:08 98.2 F 68 18 95/73 100 Date Exam was Performed: 12/08/19 Time Exam was Performed: 11:53 Consult PN Assessment/Plan POD#: 1 (1) S/P total hip arthroplasty SNOMED Code(s): 937587150491, 237477330133 Code(s): Z96.649 - PRESENCE OF UNSPECIFIED ARTIFICIAL HIP JOINT Priority: High Current Visit: Yes Qualifiers: Laterality: left Qualified Code(s): Z96.642 - Presence of left artificial hip joint (2) Osteoarthritis SNOMED Code(s): 964311277 Code(s): M19.90 - UNSPECIFIED OSTEOARTHRITIS, UNSPECIFIED SITE Priority: High Current Visit: Yes Qualifiers: Osteoarthritis location: hip Osteoarthritis type: primary Laterality: left Qualified Code(s): M16.12 - Unilateral primary osteoarthritis, left hip (3) HLD (hyperlipidemia) SNOMED Code(s): 68859800 Code(s): E78.5 - HYPERLIPIDEMIA, UNSPECIFIED Priority: Low Current Visit : No Qualifiers: Hyperlipidemia type: unspecified Qualified Code(s): E78.5 - Hyperlipidemia , unspecified (4) HTN (hypertension) SNOMED Code(s): 08597604 Code(s): I10 - ESSENTIAL (PRIMARY) HYPERTENSION Priority: Medium Current Visit: No Qualifiers: Hypertension type: unspecified Qualified Code(s): I10 - Essential (primary ) hypertension (5) History of AL (myocardial infarction) SNOMED Code(s): 220850709 Code(s): I25.2 - OLD MYOCARDIAL INFARCTION Priority: Medium Current Visit : No (6) Hx of CABG SNOMED Code(s): 552052871, 825821721 Code(s): Z95.1 - PRESENCE OF AORTOCORONARY BYPASS GRAFT Priority: Medium Current Visit: No Comment: 4 vessel in 2018 (7) Asthma SNOMED Code(s): 258437516 Code(s): J45.909 - UNSPECIFIED ASTHMA, UNCOMPLICATED Priority: Medium Current Visit: No Qualifiers: Asthma severity: unspecified severity Asthma persistence: unspecified Asthma complication type: unspecified Qualified Code(s): J45.909 - Unspecified asthma, uncomplicated (8) GERD (gastroesophageal reflux disease) SNOMED Code(s): 272110877 Code(s): K21.9 - GASTRO-ESOPHAGEAL REFLUX DISEASE WITHOUT ESOPHAGITIS Priority: Low Current Visit: No Qualifiers: Esophagitis presence: esophagitis presence not specified Qualified Code(s) : K21.9 - Gastro-esophageal reflux disease without esophagitis (9) Chronic back pain SNOMED Code(s): 329217243 Code(s): M54.9 - DORSALGIA, UNSPECIFIED; G89.29 - OTHER CHRONIC PAIN Priority: Low Current Visit: No Qualifiers: Back pain location: back pain in unspecified location Back pain laterality : unspecified Qualified Code(s): M54.9 - Dorsalgia, unspecified; G89.29 - Other chronic pain (10) Fibromyalgia SNOMED Code(s): 474319825 Code(s): M79.7 - FIBROMYALGIA Priority: Low Current Visit: No (11) Sciatica SNOMED Code(s): 50588193 Code(s): M54.30 - SCIATICA, UNSPECIFIED SIDE Priority: Low Current Visit : No Qualifiers: Laterality: unspecified laterality Qualified Code(s): M54.30 - Sciatica, unspecified side (12) RLS (restless legs syndrome) SNOMED Code(s): 95479986 Code(s): G25.81 - RESTLESS LEGS SYNDROME Priority: Low Current Visit: No (13) Chronic headache SNOMED Code(s): 986436580 Code(s): R51 - HEADACHE Priority: Low Current Visit: No Qualifiers: Headache type: unspecified Intractability: not intractable Qualified Code (s): R51 - Headache (14) Anxiety SNOMED Code(s): 48157075 Code(s): F41.9 - ANXIETY DISORDER, UNSPECIFIED Priority: Low Current Visit: No (15) Depression SNOMED Code(s): 29860234 Code(s): F32.9 - MAJOR DEPRESSIVE DISORDER, SINGLE EPISODE, UNSPECIFIED Priority: Low Current Visit: No Qualifiers: Depression Type: other depression Qualified Code(s): F32.89 - Other specified depressive episodes (16) Insomnia SNOMED Code(s): 527116350 Code(s): G47.00 - INSOMNIA, UNSPECIFIED Priority: Low Current Visit: No Qualifiers: Insomnia type: unspecified Qualified Code(s): G47.00 - Insomnia, unspecified (17) Former smoker SNOMED Code(s): 1029501 Code(s): Z87.891 - PERSONAL HISTORY OF NICOTINE DEPENDENCE Priority: Low Current Visit: No (18) CAD (coronary artery disease) SNOMED Code(s): 50251097 Code(s): I25.10 - ATHSCL HEART DISEASE OF [place] CORONARY ARTERY W/O ANG PCTRS Priority: Medium Current Visit: No Qualifiers: Coronary Disease-Associated Artery/Lesion type: unspecified vessel or lesion type [place] vs. transplanted heart: [place] heart Associated angina: angina presence unspecified Qualified Code(s): I25.10 - Atherosclerotic heart disease of [place] coronary artery without angina pectoris (19) Hx of heart artery stent SNOMED Code(s): 994699478, 498927227 Code(s): Z95.5 - PRESENCE OF CORONARY ANGIOPLASTY IMPLANT AND GRAFT Priority: Medium Current Visit: No Comment: 2013 Problem List Initiated/Reviewed/Updated: Yes Plan: I/P: Acute: S/P left total hip arthroplasty - post-operative day 1 -DVT prophylaxis and pain management per primary care team -PT/OT -IS/RT -Monitor oxygen saturation -Titrate oxygen as needed -Home medications reviewed -Vital signs stable -Monitor labs -Pre-operative Hgb was 13.0; Now 10.3 -Pre-operative GFR was 60; Mow 50 -Pre-operative echo showed LVEF of 60-65% Osteoarthritis of left hip -Pain management per primary care team Chronic: CABG in 2018 Stents placed in 2012 [place] HLD HTN [place] Asthma GERD Arthritis Chronic back pain Fibromyalgia Osteoarthritis Sciatica RLS Chronic headaches Anxiety Depression Insomnia Plan: CM for discharge planning GI prophylaxis Home medications as indicated Other orders as listed above Routine AM labs She is a full code. Her PCP is Dr. Blue From a hospitalist standpoint Nakia is doing well. She has been up ambulating and working with therapies. She is off of oxygen and has urinated. Labs and vital signs remain stable, with the exception of a slightly decreased GFR. We discussed PO hydration and avoiding things like pop, coffee, alcohol, etc. Her pain is controlled and she has been utilizing her IS. She is cleared for discharge pending primary team and PT/OT agreement. Thank you for allowing us to participate in the care of this patient!!
--- NOTE | 2019-12-08 12:29 | PCM.SURGPN ---
- General Info Date of Service: 12/08/19 POD#: 1 Functional Status: Reports: Pain Controlled, Tolerating Diet, Ambulating, Urinating, Other (The pt states she is doing well and prepared for discharge to home with her .) - Patient Data Vitals - Most Recent: Last Vital Signs Temp 97.5 F 12/08/19 11:10 Pulse 66 12/08/19 11:10 Resp 12 12/08/19 11:10 BP 117/89 12/08/19 11:10 Pulse Ox 98 12/08/19 11:10 Weight - Most Recent: 180 lb I&O - Last 24 Hours: Intake & Output 12/07/19 12/08/19 12/08/19 22:59 06:59 14:59 Intake Total 1240 850 50 Output Total 300 1400 Balance 940 -550 50 Lab Results Last 24 Hrs: Laboratory Results - last 24 hr 12/08/19 12/08/19 Range/Units 05:15 05:15 WBC 12.94 H (3.98-10.04) K/mm3 RBC 3.30 L (3.98-5.22) M/mm3 Hgb 10.3 L (11.2-15.7) gm/dl Hct 32.2 L (34.1-44.9) % MCV 97.6 H (79.4-94.8) fl MCH 31.2 (25.6-32.2) pg MCHC 32.0 L (32.2-35.5) g/dl RDW Std Deviation 42.4 (36.4-46.3) fL Plt Count 282 (182-369) K/mm3 MPV 10.5 (9.4-12.3) fl Sodium 140 (136-145) mEq/L Potassium 4.7 (3.5-5.1) mEq/L Chloride 104 (98-107) mEq/L Carbon Dioxide 28 (21-32) mEq/L Anion Gap 12.7 (5-15) BUN 16 (7-18) mg/dL Creatinine 1.1 H (0.55-1.02) mg/dL Est Cr Clr Drug Dosing 39.25 mL/min Estimated GFR (MDRD) 50 (>60) mL/min BUN/Creatinine Ratio 14.5 (14-18) Glucose 143 H (80-115) mg/dL Calcium 8.7 (8.5-10.1) mg/dL Total Bilirubin 0.3 (0.2-1.0) mg/dL AST 33 (15-37) U/L ALT 28 (14-59) U/L Alkaline Phosphatase 61 (46-116) U/L Total Protein 5.8 L (6.4-8.2) g/dl Albumin 3.2 L (3.4-5.0) g/dl Globulin 2.6 gm/dL Albumin/Globulin Ratio 1.2 (1-2) Med Orders - Current: Current Medications Aspirin (Ecotrin) 325 mg PO BID [facility] Last Admin: 12/08/19 08:12 Dose: 325 mg Bisacodyl (Dulcolax) 5 mg PO DAILY PRN PRN Reason: Constipation Buspirone HCl (Buspar) 10 mg PO DAILY [facility] Last Admin: 12/08/19 08:13 Dose: 10 mg Docusate Sodium (Colace) 100 mg PO BID [facility] Last Admin: 12/08/19 08:13 Dose: 100 mg Duloxetine HCl (Cymbalta) 60 mg PO BEDTIME [facility] Last Admin: 12/07/19 20:56 Dose: 60 mg Gabapentin (Neurontin) 100 mg PO TID [facility] Last Admin: 12/08/19 08:13 Dose: 100 mg Magnesium Hydroxide (Milk Of Magnesia) 30 ml PO BID PRN PRN Reason: Constipation Morphine Sulfate (Morphine) 2 mg IVPUSH Q2H PRN PRN Reason: Breakthrough Pain Multivitamins (Thera) 1 each PO DAILY [facility] Last Admin: 12/08/19 08:12 Dose: 1 each Naloxone HCl (Narcan) 0.1 mg IVPUSH Q5M PRN PRN Reason: Oversedation Nitroglycerin (Nitrostat) 0.4 mg SL ASDIRECTED PRN PRN Reason: Chest Pain Non-Formulary Medication (Fluticasone Propionate [Flonase]) 1 dose NASBOTH DAILY PRN PRN Reason: allergic rhinitis Ondansetron HCl (Zofran) 4 mg IVPUSH Q6H PRN PRN Reason: Nausea/Vomiting Oxycodone/Acetaminophen (Percocet 325-5 Mg) 1 - 2 tab PO Q4H PRN PRN Reason: Pain Last Admin: 12/08/19 06:27 Dose: 2 tab Pantoprazole Sodium (Protonix) 40 mg PO DAILY@0700 [facility] Last Admin: 12/08/19 06:27 Dose: 40 mg Rosuvastatin Calcium (Crestor) 10 mg PO MoWeFr@0900 [facility] Last Admin: 12/07/19 12:48 Dose: 10 mg Senna (Senna) 8.6 mg PO BID PRN PRN Reason: Constipation Valacyclovir HCl (Valtrex) 1,000 mg PO ASDIRECTED PRN PRN Reason: cold sores Discontinued Medications Acetaminophen (Tylenol) 975 mg PO ONETIME [facility] Stop: 12/07/19 16:00 Last Admin: 12/07/19 07:58 Dose: 975 mg Acetaminophen (Tylenol) 975 mg PO ONETIME [facility] Stop: 12/07/19 12:00 Bupivacaine HCl (Sensorcaine-Mpf 0.25%) Confirm Administered Dose 30 ml .ROUTE .STK-MED ONE Stop: 12/07/19 07:39 Last Admin: 12/07/19 09:55 Dose: 30 ml Cefazolin Sodium (Ancef) Confirm Administered Dose 2 gm .ROUTE .STK-MED ONE Stop: 12/07/19 07:19 Last Admin: 12/07/19 09:51 Dose: 2 gm Cefazolin Sodium (Ancef) Confirm Administered Dose 2 gm .ROUTE .STK-MED ONE Stop: 12/07/19 07:39 Morphine Sulfate 8 mg/Epinephrine HCl 0.3 mg/Cefuroxime Sodium 750 mg/Ketorolac Tromethamine 30 mg/Sodium Chloride 7.9 ml 0 mg .XX ASDIRECTED PRN PRN Reason: Pain Last Admin: 12/07/19 09:56 Dose: 788.3 mg Dexamethasone (Dexamethasone) Confirm Administered Dose 20 mg .ROUTE .STK-MED ONE Stop: 12/07/19 07:20 Famotidine (Pepcid) 20 mg PO Q12H [facility] Last Admin: 12/08/19 06:27 Dose: Not Given Fentanyl (Sublimaze) Confirm Administered Dose 100 mcg .ROUTE .STK-MED ONE Stop: 12/07/19 07:20 Fentanyl (Sublimaze) Confirm Administered Dose 100 mcg .ROUTE .STK-MED ONE Stop: 12/07/19 07:21 Fentanyl (Sublimaze) 50 mcg IVPUSH Q5M PRN PRN Reason: Pain Stop: 03/11/20 23:00 Hydromorphone HCl (Dilaudid) 0.5 mg IVPUSH Q10M PRN PRN Reason: Pain (severe 7-10) Lactated Ringer's (Ringers, Lactated) 1,000 mls @ 125 mls/hr IV ASDIRECTED [facility] Stop: 12/07/19 23:00 Last Admin: 12/07/19 07:45 Dose: 125 mls/hr Cefazolin Sodium/Dextrose 2 gm (/ Premix) 50 mls @ 100 mls/hr IV Q8H [facility] Stop: 12/08/19 09:59 Last Admin: 12/08/19 10:11 Dose: Not Given Lidocaine HCl (Xylocaine-Mpf 1%) Confirm Administered Dose 4 mls @ as directed .ROUTE .STK-MED ONE Stop: 12/07/19 07:19 Lactated Ringer's (Ringers, Lactated) Confirm Administered Dose 1,000 mls @ as directed .ROUTE .STK-MED ONE Stop: 12/07/19 07:19 Iodine (Iodine 2% Mild Tincture) Confirm Administered Dose 30 ml .ROUTE .STK- MED ONE Stop: 12/07/19 07:39 Last Admin: 12/07/19 09:49 Dose: 30 ml Ketamine HCl (Ketalar) Confirm Administered Dose 500 mg .ROUTE .STK-MED ONE Stop: 12/07/19 09:16 Ketorolac Tromethamine (Toradol) 15 mg IVPUSH Q6H PRN PRN Reason: Pain Last Admin: 12/08/19 06:28 Dose: 15 mg Lidocaine/Sodium Bicarbonate (Buffered Lidocaine 1% In Ns 8.4%) 0.25 ml IDERM ONETIME PRN PRN Reason: Prior to IV Start Stop: 12/07/19 18:00 Last Admin: 12/07/19 07:45 Dose: 0.25 ml Midazolam HCl (Versed 1 Mg/Ml) Confirm Administered Dose 2 mg .ROUTE .STK-MED ONE Stop: 12/07/19 07:20 Miscellaneous Medication (Phenylephrine 1 Mg/10 Ml-Ns) Confirm Administered Dose 1 mg IV .STK-MED ONE Stop: 12/07/19 12:27 Non-Formulary Medication (Diclofenac Sodium [Voltaren 1% Gel]) 1 dose TOP TID PRN PRN Reason: Pain Non-Formulary Medication (Ubidecarenone) 200 mg PO DAILY [facility] Ondansetron HCl (Zofran) Confirm Administered Dose 4 mg .ROUTE .STK-MED ONE Stop: 12/07/19 07:19 Ondansetron HCl (Zofran) 4 mg IVPUSH ONETIME PRN PRN Reason: Nausea/Vomiting Stop: 12/07/19 13:00 Oxycodone HCl (Oxycontin) 10 mg PO ONETIME [facility] Stop: 12/07/19 16:00 Last Admin: 12/07/19 07:58 Dose: 10 mg Oxycodone HCl (Oxycontin) 10 mg PO ONETIME [facility] Stop: 12/07/19 12:00 Pregabalin (Lyrica) 50 mg PO ONETIME [facility] Stop: 12/07/19 16:00 Last Admin: 12/07/19 07:58 Dose: 50 mg Pregabalin (Lyrica) 50 mg PO ONETIME [facility] Stop: 12/07/19 12:00 Propofol (Diprivan 20 Ml) Confirm Administered Dose 1,000 mg .ROUTE .STK-MED ONE Stop: 12/07/19 07:20 Sodium Chloride (Saline Flush) 10 ml FLUSH ASDIRECTED PRN PRN Reason: Keep Vein Open Stop: 12/07/19 18:00 Tranexamic Acid (Cyklokapron) Confirm Administered Dose 1,000 mg .ROUTE .STK- MED ONE Stop: 12/07/19 07:39 Last Admin: 12/07/19 09:57 Dose: 1,000 mg Vancomycin HCl (Vancomycin) Confirm Administered Dose 1 gm .ROUTE .STK-MED ONE Stop: 12/07/19 07:39 Last Admin: 12/07/19 09:57 Dose: 1 gm - Exam Wound/Incisions: Dressing Dry and Intact General: Alert, Cooperative, No Acute Distress Lungs: Normal Respiratory Effort Extremities: Other (NVS intact for BLE. Merly's negative. Left thigh soft.) Sepsis Event Note - Evaluation Sepsis Screening Result: No Definite Risk - Focused Exam Vital Signs: Vital Signs Temp Pulse Resp BP Pulse Ox 12/08/19 11:10 97.5 F 66 12 117/89 98 12/08/19 08:10 97.9 F 71 12 121/94 H 96 12/08/19 03:08 98.2 F 68 18 95/73 100 Date Exam was Performed: 12/08/19 Time Exam was Performed: 12:28 - Problem List Review Problem List Initiated/Reviewed/Updated: Yes - My Orders Last 24 Hours: Active Orders 24 hr Category Date Time Status Ready for Discharge [RC] PER UNIT ROUTINE Care 12/08/19 07:13 Active Aspirin [Ecotrin] Med 12/08/19 09:00 Active 325 mg PO BID DULoxetine [Cymbalta] Med 12/07/19 21:00 Active 60 mg PO BEDTIME Docusate Sodium [Colace] Med 12/07/19 21:00 Active 100 mg PO BID Gabapentin [Neurontin] Med 12/07/19 15:00 Active 100 mg PO TID Multivitamins,Therapeutic [Thera] Med 12/08/19 09:00 Active 1 each PO DAILY Pantoprazole [ProTONIX] Med 12/08/19 07:00 Active 40 mg PO DAILY@0700 Rosuvastatin [Crestor] Med 12/07/19 12:00 Active 10 mg PO MoWeFr@0900 busPIRone [Buspar] Med 12/08/19 09:00 Active 10 mg PO DAILY Medication Orders Aspirin (Ecotrin) 325 mg PO BID [facility] Last Admin: 12/08/19 08:12 Dose: 325 mg Bisacodyl (Dulcolax) 5 mg PO DAILY PRN PRN Reason: Constipation Buspirone HCl (Buspar) 10 mg PO DAILY [facility] Last Admin: 12/08/19 08:13 Dose: 10 mg Docusate Sodium (Colace) 100 mg PO BID [facility] Last Admin: 12/08/19 08:13 Dose: 100 mg Admin: 12/07/19 20:56 Dose: 100 mg Duloxetine HCl (Cymbalta) 60 mg PO BEDTIME [facility] Last Admin: 12/07/19 20:56 Dose: 60 mg Gabapentin (Neurontin) 100 mg PO TID [facility] Last Admin: 12/08/19 08:13 Dose: 100 mg Admin: 12/07/19 20:56 Dose: 100 mg Admin: 12/07/19 15:57 Dose: 100 mg Magnesium Hydroxide (Milk Of Magnesia) 30 ml PO BID PRN PRN Reason: Constipation Morphine Sulfate (Morphine) 2 mg IVPUSH Q2H PRN PRN Reason: Breakthrough Pain Multivitamins (Thera) 1 each PO DAILY [facility] Last Admin: 12/08/19 08:12 Dose: 1 each Naloxone HCl (Narcan) 0.1 mg IVPUSH Q5M PRN PRN Reason: Oversedation Nitroglycerin (Nitrostat) 0.4 mg SL ASDIRECTED PRN PRN Reason: Chest Pain Non-Formulary Medication (Fluticasone Propionate [Flonase]) 1 dose NASBOTH DAILY PRN PRN Reason: allergic rhinitis Ondansetron HCl (Zofran) 4 mg IVPUSH Q6H PRN PRN Reason: Nausea/Vomiting Oxycodone/Acetaminophen (Percocet 325-5 Mg) 1 - 2 tab PO Q4H PRN PRN Reason: Pain Last Admin: 12/08/19 06:27 Dose: 2 tab Admin: 12/08/19 02:32 Dose: 2 tab Admin: 12/07/19 22:25 Dose: 2 tab Admin: 12/07/19 18:10 Dose: 2 tab Admin: 12/07/19 14:01 Dose: 2 tab Pantoprazole Sodium (Protonix) 40 mg PO DAILY@0700 [facility] Last Admin: 12/08/19 06:27 Dose: 40 mg Rosuvastatin Calcium (Crestor) 10 mg PO MoWeFr@0900 [facility] Last Admin: 12/07/19 12:48 Dose: 10 mg Senna (Senna) 8.6 mg PO BID PRN PRN Reason: Constipation Valacyclovir HCl (Valtrex) 1,000 mg PO ASDIRECTED PRN PRN Reason: cold sores - Assessment Assessment (Free Text/Narrative):: POD#1 - left SIMÓN - Plan Plan (Free Text/Narrative):: 1. Hgb 10.3. 2. Discharge to home today. 3. WBAT LLE. SIMÓN precautions. 4. Outpatient therapy. The pt's case was discussed with Dr. Spear today.
--- NOTE | 2019-12-09 14:05 | PCM.DCSUM1 ---
Discharge Summary - Hospital Course Brief History: Nakia is a 69 yo female who underwent right SIMÓN with Dr. Spear on 12-07-2019. The procedure was completed under spinal anesthesia with sedation. The pt tolerated the procedure well and was admitted to the Medical-Surgical Unit. Medical management was provided by the Hospitalist service. The pt's Hospital course was uneventful. The pt's Hgb on POD#1 was 10.3. On POD#1, 325mg ASA BID was initiated for VTE prophylaxis. SCDs and TEDs were also ordered. A Mepilex dressing was placed at the incision site at the time of surgery and remained clean and dry. The pt participated in P.T. and O.T. and progressed well. She followed the SIMÓN precautions. The pt was allowed to WBAT. On POD#1, the pt was deemed appropriate to discharge to home with her family. - Discharge Data Discharge Date: 12/08/19 Discharge Disposition: Home, Self-Care 01 Condition: Good - Referral to Home Health Primary Care Physician: Emely Munroe MD - Patient Summary/Data Consults: Consultations 12/07/19 06:29 OT Evaluation and Treatment [CONS] Routine PT Evaluation and Treatment [CONS] Routine 12/07/19 06:30 Consult to Physician [CONS] Routine - Patient Instructions Diet: Usual Diet as Tolerated Activity: Apply Ice, As Tolerated, Elevate Extremity, Full Weight Bearing Activity, Other: Follow the total hip precautions. Driving: Do Not Drive Showering/Bathing: May Shower Wound/Incision Care: Keep Operative Site/Wound Site Clean and Dry, Do NOT Change Dressing Notify Provider of: Fever, Increased Pain, Swelling and Redness, Drainage, Nausea and/or Vomiting Other/Special Instructions: Please get up and moving around EVERY HOUR while awake. This helps to prevent blood clots. Please use your walker and have help with mobility as needed. Take a short walk in your home every hour while awake. Please take 325mg Aspirin TWICE daily. The aspirin is being used for blood clot prevention and not for pain management so please do not miss a dose of the medication. Please do not use the 81mg aspirin daily while using the 325mg aspirin twice daily. When the course of 325mg aspirin is completed, you will resume use of the 81mg aspirin. You could use a medication like Pepcid or Tagamet and a medication like Prilosec or Nexium to protect your stomach while you are using the aspirin. At home, please complete the exercises that you learned during the Hospital stay. Schedule for physical therapy. Follow the total hip precautions. Use the pain medication as needed. The medication may cause drowsiness and constipation. Contact your primary care provider for instructions if you are constipated. You may use a stool softener like docusate sodium or Colace 100mg twice daily and/or a laxative like Miralax daily for constipation. Increase your water and fiber intake while you are using the pain medication. Discontinue use of the pain medication as soon as able. Please do not use other medications that may cause drowsiness (other pain medications, anxiety pills, cold medications, sleeping pills, etc) while using the prescription pain medication. Do not use alcohol while using the pain medication. You may use acetaminophen or Tylenol for pain management, however, please ensure you are not using over 4000 mg or 4 grams of acetaminophen per day from all sources. Your pain medication has 325mg of acetaminophen per tablet. At this time, please do not use ibuprofen (Motrin, Advil) or naproxen (Aleve) for pain management as you are using the aspirin. When the aspirin course is completed in 4 to 6 weeks, you could use ibuprofen or naproxen for pain management (if this is allowed by your primary care provider). Wear the JODI hose during the day and you may remove these at night. Elevate the limb to decrease swelling. Place ice to the area often. Place a towel between your skin and the blue pad. Use the incentive spirometer often. Take deep breaths throughout the day. Please keep the dressing in place until follow-up. Notify the Clinic if the dressing becomes saturated. Increase your protein intake while you are healing. If you have diabetes, please closely monitor your blood sugars and notify your primary care provider with abnormal values. Elevated blood sugars increases the risk of infection. Call the Clinic with questions or concerns - [phone]. - Discharge Plan *PRESCRIPTION DRUG MONITORING PROGRAM REVIEWED*: No *COPY OF PRESCRIPTION DRUG MONITORING REPORT IN PATIENT RONI: No Prescriptions/Med Rec: Acetaminophen/oxyCODONE [Percocet 325-5 MG] 1 - 2 tab PO Q4H PRN #50 tablet PRN Reason: Pain Aspirin [Ecotrin EC] 325 mg PO BID #70 tab.ec Home Medications: Home Meds Cyclobenzaprine [Flexeril] 10 mg PO BEDTIME PRN 12/06/19 [History] DULoxetine [Cymbalta] 60 mg PO BEDTIME 12/06/19 [History] Diclofenac Sodium [Voltaren 1% Gel] 1 dose TOP TID PRN 12/06/19 [History] Fluticasone Propionate [Flonase] 1 dose NASBOTH DAILY PRN 12/06/19 [History] Gabapentin [Neurontin] 100 mg PO TID 12/06/19 [History] Multivitamin [Daily Multiple Vitamin] 1 tab PO DAILY 12/06/19 [History] Nitroglycerin [Nitrostat] 0.4 mg PO ASDIRECTED PRN 12/06/19 [History] Omeprazole Magnesium [Prilosec Otc] 40 mg PO DAILY 12/06/19 [History] Rosuvastatin [Crestor] 10 mg PO MOWEFR 12/06/19 [History] Ubidecarenone [Coq-10] 200 mg PO DAILY 12/06/19 [History] busPIRone [Buspar] 10 mg PO DAILY 12/06/19 [History] valACYclovir HCl [Valtrex] 1,000 mg PO ASDIRECTED PRN 12/06/19 [History] Acetaminophen/oxyCODONE [Percocet 325-5 MG] 1 - 2 tab PO Q4H PRN #50 tablet 09/16 [Rx] Aspirin [Ecotrin EC] 325 mg PO BID #70 tab.ec 12/08/19 [Rx] Docusate Sodium [Colace] 100 mg PO BID cap 12/08/19 [Rx] Famotidine [Pepcid] 20 mg PO Q12H tablet 12/08/19 [Rx] LORazepam [Ativan] 0.5 - 1 mg PO BEDTIME #0 12/08/19 [Rx] Magnesium Hydroxide [Milk of Magnesia] 30 ml PO BID PRN cup 12/08/19 [Rx] Sennosides [Senna] 8.6 mg PO BID PRN tablet 12/08/19 [Rx] Zolpidem [Ambien] 5 mg PO BEDTIME #0 12/08/19 [Rx] bisacodyL [Dulcolax] 5 mg PO DAILY PRN tablet 12/08/19 [Rx] Patient Handouts: Total Hip Replacement, [id number] Referrals: Deb Lambert PA-C [Physician Mental Tester] - (please attend the scheduled follow up appointment with Deb Lambert 12/14/2019 at 1200-[place] 12/28/2019 at [id number] 02/01/[address] [place] [address]) - Discharge Summary/Plan Comment DC Time >30 min.: No - Patient Data Vitals - Most Recent: Last Vital Signs Temp 97.5 F 12/08/19 11:10 Pulse 66 12/08/19 11:10 Resp 12 12/08/19 11:10 BP 117/89 12/08/19 11:10 Pulse Ox 98 12/08/19 11:10 Weight - Most Recent: 180 lb Med Orders - Current: Current Medications Discontinued Medications Acetaminophen (Tylenol) 975 mg PO ONETIME [facility] Stop: 12/07/19 16:00 Last Admin: 12/07/19 07:58 Dose: 975 mg Acetaminophen (Tylenol) 975 mg PO ONETIME [facility] Stop: 12/07/19 12:00 Aspirin (Ecotrin) 325 mg PO BID [facility] Last Admin: 12/08/19 08:12 Dose: 325 mg Bisacodyl (Dulcolax) 5 mg PO DAILY PRN PRN Reason: Constipation Bupivacaine HCl (Sensorcaine-Mpf 0.25%) Confirm Administered Dose 30 ml .ROUTE .STK-MED ONE Stop: 12/07/19 07:39 Last Admin: 12/07/19 09:55 Dose: 30 ml Buspirone HCl (Buspar) 10 mg PO DAILY [facility] Last Admin: 12/08/19 08:13 Dose: 10 mg Cefazolin Sodium (Ancef) Confirm Administered Dose 2 gm .ROUTE .STK-MED ONE Stop: 12/07/19 07:19 Last Admin: 12/07/19 09:51 Dose: 2 gm Cefazolin Sodium (Ancef) Confirm Administered Dose 2 gm .ROUTE .STK-MED ONE Stop: 12/07/19 07:39 Morphine Sulfate 8 mg/Epinephrine HCl 0.3 mg/Cefuroxime Sodium 750 mg/Ketorolac Tromethamine 30 mg/Sodium Chloride 7.9 ml 0 mg .XX ASDIRECTED PRN PRN Reason: Pain Last Admin: 12/07/19 09:56 Dose: 788.3 mg Dexamethasone (Dexamethasone) Confirm Administered Dose 20 mg .ROUTE .STK-MED ONE Stop: 12/07/19 07:20 Docusate Sodium (Colace) 100 mg PO BID [facility] Last Admin: 12/08/19 08:13 Dose: 100 mg Duloxetine HCl (Cymbalta) 60 mg PO BEDTIME [facility] Last Admin: 12/07/19 20:56 Dose: 60 mg Famotidine (Pepcid) 20 mg PO Q12H [facility] Last Admin: 12/08/19 06:27 Dose: Not Given Fentanyl (Sublimaze) Confirm Administered Dose 100 mcg .ROUTE .STK-MED ONE Stop: 12/07/19 07:20 Fentanyl (Sublimaze) Confirm Administered Dose 100 mcg .ROUTE .STK-MED ONE Stop: 12/07/19 07:21 Fentanyl (Sublimaze) 50 mcg IVPUSH Q5M PRN PRN Reason: Pain Stop: 12/07/19 23:00 Gabapentin (Neurontin) 100 mg PO TID [facility] Last Admin: 12/08/19 08:13 Dose: 100 mg Hydromorphone HCl (Dilaudid) 0.5 mg IVPUSH Q10M PRN PRN Reason: Pain (severe 7-10) Lactated Ringer's (Ringers, Lactated) 1,000 mls @ 125 mls/hr IV ASDIRECTED [facility] Stop: 12/07/19 23:00 Last Admin: 12/07/19 07:45 Dose: 125 mls/hr Cefazolin Sodium/Dextrose 2 gm (/ Premix) 50 mls @ 100 mls/hr IV Q8H [facility] Stop: 12/08/19 09:59 Last Admin: 12/08/19 10:11 Dose: Not Given Lidocaine HCl (Xylocaine-Mpf 1%) Confirm Administered Dose 4 mls @ as directed .ROUTE .STK-MED ONE Stop: 12/07/19 07:19 Lactated Ringer's (Ringers, Lactated) Confirm Administered Dose 1,000 mls @ as directed .ROUTE .STK-MED ONE Stop: 12/07/19 07:19 Iodine (Iodine 2% Mild Tincture) Confirm Administered Dose 30 ml .ROUTE .STK- MED ONE Stop: 12/07/19 07:39 Last Admin: 03/11/20 09:49 Dose: 30 ml Ketamine HCl (Ketalar) Confirm Administered Dose 500 mg .ROUTE .STK-MED ONE Stop: 12/07/19 09:16 Ketorolac Tromethamine (Toradol) 15 mg IVPUSH Q6H PRN PRN Reason: Pain Last Admin: 12/08/19 06:28 Dose: 15 mg Lidocaine/Sodium Bicarbonate (Buffered Lidocaine 1% In Ns 8.4%) 0.25 ml IDERM ONETIME PRN PRN Reason: Prior to IV Start Stop: 12/07/19 18:00 Last Admin: 12/07/19 07:45 Dose: 0.25 ml Magnesium Hydroxide (Milk Of Magnesia) 30 ml PO BID PRN PRN Reason: Constipation Midazolam HCl (Versed 1 Mg/Ml) Confirm Administered Dose 2 mg .ROUTE .STK-MED ONE Stop: 12/07/19 07:20 Miscellaneous Medication (Phenylephrine 1 Mg/10 Ml-Ns) Confirm Administered Dose 1 mg IV .STK-MED ONE Stop: 12/07/19 12:27 Morphine Sulfate (Morphine) 2 mg IVPUSH Q2H PRN PRN Reason: Breakthrough Pain Multivitamins (Thera) 1 each PO DAILY [facility] Last Admin: 12/08/19 08:12 Dose: 1 each Naloxone HCl (Narcan) 0.1 mg IVPUSH Q5M PRN PRN Reason: Oversedation Nitroglycerin (Nitrostat) 0.4 mg SL ASDIRECTED PRN PRN Reason: Chest Pain Non-Formulary Medication (Diclofenac Sodium [Voltaren 1% Gel]) 1 dose TOP TID PRN PRN Reason: Pain Non-Formulary Medication (Ubidecarenone) 200 mg PO DAILY [facility] Ondansetron HCl (Zofran) 4 mg IVPUSH Q6H PRN PRN Reason: Nausea/Vomiting Ondansetron HCl (Zofran) Confirm Administered Dose 4 mg .ROUTE .STK-MED ONE Stop: 12/07/19 07:19 Ondansetron HCl (Zofran) 4 mg IVPUSH ONETIME PRN PRN Reason: Nausea/Vomiting Stop: 12/07/19 13:00 Oxycodone HCl (Oxycontin) 10 mg PO ONETIME [facility] Stop: 12/07/19 16:00 Last Admin: 12/07/19 07:58 Dose: 10 mg Oxycodone HCl (Oxycontin) 10 mg PO ONETIME [facility] Stop: 12/07/19 12:00 Oxycodone/Acetaminophen (Percocet 325-5 Mg) 1 - 2 tab PO Q4H PRN PRN Reason: Pain Last Admin: 12/08/19 13:08 Dose: 1 tab Pantoprazole Sodium (Protonix) 40 mg PO DAILY@0700 [facility] Last Admin: 12/08/19 06:27 Dose: 40 mg Pregabalin (Lyrica) 50 mg PO ONETIME [facility] Stop: 12/07/19 16:00 Last Admin: 12/07/19 07:58 Dose: 50 mg Pregabalin (Lyrica) 50 mg PO ONETIME [facility] Stop: 12/07/19 12:00 Propofol (Diprivan 20 Ml) Confirm Administered Dose 1,000 mg .ROUTE .STK-MED ONE Stop: 12/07/19 07:20 Rosuvastatin Calcium (Crestor) 10 mg PO MoWeFr@0900 [facility] Last Admin: 12/07/19 12:48 Dose: 10 mg Senna (Senna) 8.6 mg PO BID PRN PRN Reason: Constipation Sodium Chloride (Saline Flush) 10 ml FLUSH ASDIRECTED PRN PRN Reason: Keep Vein Open Stop: 12/07/19 18:00 Tranexamic Acid (Cyklokapron) Confirm Administered Dose 1,000 mg .ROUTE .STK- MED ONE Stop: 12/07/19 07:39 Last Admin: 12/07/19 09:57 Dose: 1,000 mg Valacyclovir HCl (Valtrex) 1,000 mg PO ASDIRECTED PRN PRN Reason: cold sores Vancomycin HCl (Vancomycin) Confirm Administered Dose 1 gm .ROUTE .STK-MED ONE Stop: 12/07/19 07:39 Last Admin: 12/07/19 09:57 Dose: 1 gm
--- NOTE | 2019-12-12 12:53 | PCM.OPNOTE ---
- General Post-Op/Procedure Note Date of Surgery/Procedure: 12/07/19 Operative Procedure(s): left total hip arthroplasty Pre Op Diagnosis: left hip osteoarthrosis Post-Op Diagnosis: Same Anesthesia Technique: Local, MAC, Spinal Primary Surgeon: Leighton Spear Anesthesia Provider: Lorelei Lui Rehab Rn: Deb Lambert Rehab Rn: Deborah Bang EBRo in mLs: 200 Complications: None Condition: Good Free Text/Narrative:: 52 cup 4 stem 28-4
--- NOTE | 2019-12-12 14:28 | OR ---
DATE OF OPERATION: 12/07/2019 SURGEON: Leighton Spear MD OPERATION PERFORMED: Left total hip arthroplasty. PREOPERATIVE DIAGNOSIS: Left hip osteoarthrosis. POSTOPERATIVE DIAGNOSIS: Left hip osteoarthrosis. ANESTHESIA: Local MAC with spinal prep. ANESTHESIA PROVIDER: Maryana Guillory. DIRECTOR MACHINE: Deb Lambert PA-C, and Deborah Bang LPN. ESTIMATED BLOOD LOSS: 200 mL. COMPLICATIONS: None. CONDITION: Stable. IMPLANTS: 1. [place] size 52 mm solid Tritanium II acetabular cup. 2. Mandeep size 28 -4/42 MDM components. 3. Mandeep size 4 Accolade II stem. DESCRIPTION OF PROCEDURE: The patient was identified in the preop holding area. Proper site was marked and identified by the surgeon. The patient was taken back to the operating theater where after adequate anesthesia, the patient was placed in a right lateral decubitus position. Axillary roll was placed. Pegs were then placed and well padded. The patient's gluteal fold was parallel to the floor. Left hip was then sterilely prepped and draped in the usual sterile fashion. OR time- out was performed. The patient received 2 g IV Ancef. Standard posterior incision was made centered over the greater trochanter. This was taken down to the IT band and gluteal fascia, which was incised along the incisional length. Charnley retractor was then placed. Short external rotators were identified, and takedown of the short external rotators was done from the level of the piriformis down to the lesser trochanter. Hip was then dislocated. Neck cut was completed and found to be adequate. Attention was turned to the acetabulum. Anterior and posterior acetabular retractors were then placed and found to be adequate visualization. Circumferential removal of the labrum as well as pulvinar was done at this time. Starting with a 48 reamer, I was able to ream up to a 52 which was found to have adequate purchase with a good bony bleeding bed. A 52 mm solid Tritanium II acetabular cup was impacted in place with a roughly 45 to 50 degrees of abduction and 20 to 30 degrees of anteversion. The MDM liner was then impacted in place and all the parts were well seated. Attention was turned to the femur. A starter awl was placed down the canal. Starting with the 0 broach, I was able to broach up to a size 4, which was found to be rotationally and vertically stable. The trial MDM components were then placed starting with a 0. It was found to have a little bit extra leg lengths so at this time, we trialed a -4, which found to have adequate religion of leg lengths and stable throughout range of motion. Bone hook was used to dislocate the trial implants. A size 4 Accolade II stem was then impacted in place. The MDM components were constructed on the back table with a 42/28, -4 head. These were then impacted onto the stem. The hip was then relocated. A #5 Ethibond suture was used for closure of short external rotators and capsule. 1 L dilute Betadine solution was irrigated through the hip along with 2-3 L pulse lavage irrigation with Ancef. Topical tranexamic acid and vancomycin powder were applied and periarticular injection was completed. A #2 barbed suture was used for closure of the IT band and gluteal fascia, 2-0 Vicryl was used subcutaneously, and Prineo was used for the skin. The patient tolerated the procedure well and sent to PACU in stable condition. MMODAL /[id number]
== END 2019-12-08 13:10 | disposition home or self-care (01) | DRG 470 ==
LOC: JD.MS 07:05
PROVIDERS: ADMIT Orthopaedic Surgery; ATTEND Orthopaedic Surgery
PROC: 0SRB01Z Replacement of Left Hip Joint with Metal Synthetic Substitute, Open Approach (ICD-10-PCS; principal; 2019-12-07)
DX: M16.12 Unilateral primary osteoarthritis, left hip (principal); I10 Essential (primary) hypertension; E78.5 Hyperlipidemia, unspecified; E78.1 Pure hyperglyceridemia; F51.04 Psychophysiologic insomnia; F41.9 Anxiety disorder, unspecified; F32.9 Major depressive disorder, single episode, unspecified; J45.20 Mild intermittent asthma, uncomplicated; E78.00 Pure hypercholesterolemia, unspecified; K21.9 Gastro-esophageal reflux disease without esophagitis; M79.7 Fibromyalgia; M54.30 Sciatica, unspecified side; G25.81 Restless legs syndrome; I25.10 Atherosclerotic heart disease of native coronary artery without angina pectoris; Z95.5 Presence of coronary angioplasty implant and graft; Z91.040 Latex allergy status; Z88.1 Allergy status to other antibiotic agents; Z88.5 Allergy status to narcotic agent; Z95.1 Presence of aortocoronary bypass graft; I25.2 Old myocardial infarction; Z87.891 Personal history of nicotine dependence; Z79.82 Long term (current) use of aspirin; Z79.899 Other long term (current) drug therapy
CPT/HCPCS: 01214; 36415; 73501-26-LT; 73501-LT; 80053; 85027; 86850; 86900; 86901; 87641; 97110-GP; 97116-GP; 97161-GP; 97165-GO; 97530-GP; 97535-GO; 99222; 99232; A9270-GY; C1776; J0171; J0690; J0697; J1100; J1885; J2001; J2250; J2270; J2370; J2405; J2704; J3010; J3370; J3490; J7120

== ENCOUNTER 2022-06-23 08:54 | Day surgery (SDC) | payer MEDICARE, BC ==
[~2022-06-23 08:54] MED LIST changes: -Bisacodyl 5 MG Tab PO PRN; -Magnesium Hydroxide 400 MG/5 ML Susp 30 ML Cup PO PRN; -Morphine 2 MG/ML SYRINGE IVPUSH PRN; +Morphine 8 MG, EPINEPHrine 0.3 MG, Cefuroxime 750 MG, Ketorolac 30 MG, Sodium Chloride ... PRN; -Naloxone 0.4 MG/ML SDV IVPUSH PRN; -Ondansetron 4 MG/2 ML SDV IVPUSH PRN; -Sennosides 8.6 MG Tab PO PRN; +Sodium Chloride 0.9% 10 ML Syringe FLUSH SCH; +Vancomycin 1 GM SDV ONE
[2022-06-23] MEDS ORDERED: EPINEPHrine 1 MG/ML SDV ONE ×2 (09:32→12:30)
[2022-06-23] MEDS ORDERED: Ropivacaine 0.5% 5 MG/ML 30 ML SDV ONE ×2 (09:32→12:30)
[2022-06-23] MEDS ORDERED: Propofol 200 MG/20 ML SDV ONE ×3 (10:37→11:35)
[2022-06-23] MEDS ORDERED: Midazolam 1 MG/ML 2 ML SDV ONE (10:37)
[2022-06-23] MEDS ORDERED: Lidocaine 1% 4 ML ONE (10:38)
[2022-06-23] MEDS ORDERED: ceFAZolin 2 GM Vial ONE ×2 (10:39→11:15)
[2022-06-23] MEDS ORDERED: Ondansetron 4 MG/2 ML SDV ONE (10:40)
[2022-06-23] MEDS ORDERED: Vancomycin 1 GM SDV ONE (10:41)
[2022-06-23] MEDS ORDERED: Bupivacaine 0.25% 10 ML SDV ONE (10:46)
[2022-06-23] MEDS ORDERED: Triamcinolone Acetonide 40 MG/ML 1 ML SDV ONE (10:46)
[2022-06-23] MEDS ORDERED: Lactated Ringers 1,000 ML ONE (11:28)
[2022-06-23] MEDS ORDERED: Ondansetron 4 MG/2 ML SDV IVPUSH PRN (11:38)
[2022-06-23] MEDS ORDERED: fentaNYL 100 MCG/2 ML SDV IVPUSH PRN (11:38)
[2022-06-23] MEDS ORDERED: diphenhydrAMINE 50 MG/ML SDV IVPUSH PRN (11:38)
[2022-06-23] MEDS ORDERED: oxyCODONE 5 MG Tab PO SCH (13:32)
== END 2022-06-23 15:45 | disposition home or self-care (01) ==
LOC: JD.SDS 08:54
PROVIDERS: ATTEND Orthopaedic Surgery
DX: M17.0 Bilateral primary osteoarthritis of knee (principal); I10 Essential (primary) hypertension; E78.5 Hyperlipidemia, unspecified; M79.10 Myalgia, unspecified site; F41.9 Anxiety disorder, unspecified; K21.9 Gastro-esophageal reflux disease without esophagitis; I25.2 Old myocardial infarction; J45.909 Unspecified asthma, uncomplicated; F32.A Depression, unspecified; Z79.899 Other long term (current) drug therapy; Z79.82 Long term (current) use of aspirin; Z91.040 Latex allergy status; Z88.1 Allergy status to other antibiotic agents; Z88.5 Allergy status to narcotic agent; Z88.8 Allergy status to other drugs, medicaments and biological substances; Z91.048 Other nonmedicinal substance allergy status; Z95.1 Presence of aortocoronary bypass graft; Z98.890 Other specified postprocedural states; Z90.49 Acquired absence of other specified parts of digestive tract; Z87.891 Personal history of nicotine dependence
CPT/HCPCS: 0055T; 20610; 27447; 73560; 97110; 97116; 97161; A9270; C1713; C1776; J0171; J0690; J0697; J1885; J2250; J2270; J2405; J2704; J2795; J3301; J3370; J3490; J7120; 01402; 64450; 76942

== ENCOUNTER 2022-12-03 07:24 | Day surgery (SDC) | payer MEDICARE, BC ==
[~2022-12-03 07:24] MED LIST changes: +Lactated Ringers 1,000 ML ONE; +Midazolam 1 MG/ML 2 ML SDV ONE; +Propofol 200 MG/20 ML SDV ONE; -Vancomycin 1 GM SDV ONE; +ceFAZolin 2 GM Vial ONE
[2022-12-03] MEDS ORDERED: Tranexamic Acid 1,000 MG/10 ML Vial ONE (07:43)
[2022-12-03] MEDS ORDERED: Vancomycin 1 GM SDV ONE (07:43)
[2022-12-03] MEDS ORDERED: Dexamethasone 4 MG/ML 5 ML MDV ONE (07:56)
[2022-12-03] MEDS ORDERED: EPINEPHrine 1 MG/ML SDV ONE (07:57)
[2022-12-03] MEDS ORDERED: Ropivacaine 0.5% 5 MG/ML 30 ML SDV ONE (07:57)
[2022-12-03] MEDS ORDERED: Ondansetron 4 MG/2 ML SDV ONE (08:46)
[2022-12-03] MEDS ORDERED: HYDROmorphone 0.5 MG/0.5 ML Syringe IVPUSH PRN (08:59)
[2022-12-03] MEDS ORDERED: fentaNYL 100 MCG/2 ML SDV IVPUSH PRN (08:59)
[2022-12-03] MEDS ORDERED: Ondansetron 4 MG/2 ML SDV IVPUSH PRN (08:59)
[2022-12-03] MEDS ORDERED: oxyCODONE 5 MG Tab PO PRN (11:01)
== END 2022-12-03 14:24 | disposition home or self-care (01) ==
LOC: JD.SDS 07:24
PROVIDERS: ATTEND Orthopaedic Surgery
DX: M17.12 Unilateral primary osteoarthritis, left knee (principal); G89.29 Other chronic pain; G47.00 Insomnia, unspecified; G25.81 Restless legs syndrome; I25.810 Atherosclerosis of coronary artery bypass graft(s) without angina pectoris; K21.9 Gastro-esophageal reflux disease without esophagitis; M79.7 Fibromyalgia; F41.9 Anxiety disorder, unspecified; F32.A Depression, unspecified; I10 Essential (primary) hypertension; E78.5 Hyperlipidemia, unspecified; J45.20 Mild intermittent asthma, uncomplicated; Z79.899 Other long term (current) drug therapy; Z88.1 Allergy status to other antibiotic agents; Z91.040 Latex allergy status; Z88.8 Allergy status to other drugs, medicaments and biological substances; Z88.5 Allergy status to narcotic agent; Z96.651 Presence of right artificial knee joint; Z87.891 Personal history of nicotine dependence
CPT/HCPCS: 0055T; 27447; 64447; 73560; 97116; 97161; A9270; C1713; C1776; J0171; J0690; J0697; J1100; J1885; J2250; J2270; J2405; J2704; J2795; J3370; J7120; 01402; J3490

== ENCOUNTER 2023-07-27 06:03 | Day surgery (SDC) | payer MEDICARE, BC ==
[~2023-07-27 06:03] MED LIST changes: -Lactated Ringers 1,000 ML ONE; -Lidocaine 1%/Sod Bicarbonate in NS 8.4% 1 ML Syringe IDERM PRN; -Midazolam 1 MG/ML 2 ML SDV ONE; -Morphine 8 MG, EPINEPHrine 0.3 MG, Cefuroxime 750 MG, Ketorolac 30 MG, Sodium Chloride ... PRN; +Morphine 8 MG, EPINEPHrine 0.3 MG, Ketorolac 30 MG, Sodium Chloride 0.9% 17.9 ML PRN; -Propofol 200 MG/20 ML SDV ONE; +Tranexamic Acid 1,000 MG/10 ML Vial ONE; +Vancomycin 1 GM SDV ONE; -ceFAZolin 2 GM Vial ONE; -oxyCODONE ER 10 MG TAB.ER PO SCH
[2023-07-27] MEDS: oxyCODONE ER 10 MG TAB.ER PO SCH ×2 (06:50→13:20)
[2023-07-27] MEDS ORDERED: Propofol 200 MG/20 ML SDV ONE (06:54)
[2023-07-27] MEDS ORDERED: Lidocaine 2% 5 ML SDV ONE (06:54)
[2023-07-27] MEDS ORDERED: Lidocaine 1% 5 ML VIAL ONE (06:55)
[2023-07-27] MEDS ORDERED: Midazolam 1 MG/ML 2 ML SDV ONE ×2 (06:56→07:18)
[2023-07-27] MEDS ORDERED: Ondansetron 4 MG/2 ML SDV IVPUSH PRN (08:07)
[2023-07-27] MEDS ORDERED: HYDROmorphone 0.5 MG/0.5 ML Syringe IVPUSH PRN (08:07)
[2023-07-27] MEDS ORDERED: fentaNYL 100 MCG/2 ML SDV IVPUSH PRN (08:07)
[2023-07-27] MEDS ORDERED: oxyCODONE 5 MG Tab PO PRN (11:47)
== END 2023-07-27 13:20 | disposition home or self-care (01) ==
LOC: JD.SDS 06:03
PROVIDERS: ATTEND Orthopaedic Surgery
DX: M16.11 Unilateral primary osteoarthritis, right hip (principal); F51.04 Psychophysiologic insomnia; M54.50 Low back pain, unspecified; G89.29 Other chronic pain; M79.7 Fibromyalgia; G25.81 Restless legs syndrome; K21.9 Gastro-esophageal reflux disease without esophagitis; E78.5 Hyperlipidemia, unspecified; I10 Essential (primary) hypertension; J45.20 Mild intermittent asthma, uncomplicated; I25.810 Atherosclerosis of coronary artery bypass graft(s) without angina pectoris; F32.A Depression, unspecified; F41.9 Anxiety disorder, unspecified; R82.90 Unspecified abnormal findings in urine; Z79.899 Other long term (current) drug therapy; Z79.82 Long term (current) use of aspirin; Z88.1 Allergy status to other antibiotic agents; Z88.0 Allergy status to penicillin; Z88.8 Allergy status to other drugs, medicaments and biological substances; Z88.5 Allergy status to narcotic agent; Z91.040 Latex allergy status; Z96.642 Presence of left artificial hip joint; Z87.891 Personal history of nicotine dependence
CPT/HCPCS: 0055T; 27130; 36415; 73501; 86850; 86900; 86901; 97110; 97116; 97161; A9270; C1713; C1776; J0171; J1885; J2250; J2270; J2405; J2704; J3370; J7030; J7050; J7120; 01214; 99100; J3490